=== PATIENT | male | born 1995 | race Two or more races ===

== ENCOUNTER 2023-02-13 17:46 | Emergency (ER) | payer OTHER ==
[~2023-02-13] VITALS: Ht 172.7 cm; Wt 89.4 kg
[2023-02-13 17:55] VITALS: BP 142/78
== END 2023-02-13 18:28 | disposition left against medical advice (07) ==
LOC: ER 17:46
DX: S61.212A Laceration without foreign body of right middle finger without damage to nail, initial encounter (principal); Z53.21 Procedure and treatment not carried out due to patient leaving prior to being seen by health care provider; W26.9XXA Contact with unspecified sharp object(s), initial encounter; Y93.89 Activity, other specified; Y92.89 Other specified places as the place of occurrence of the external cause; Y99.8 Other external cause status